=== PATIENT | male | born 1945 | race Caucasian/White ===

== ENCOUNTER → 2016-11-23 | Outpatient (CLI) | payer MEDICARE, BC ==
[2016-04-03 10:30] VITALS: BP 124/75
[~2016-11-23] MED LIST: FLEC100T PO; LISI10TA2 PO; METO25TA9 PO; RIVA10TA PO; SIMV40TA PO; VITA400C36 PO
--- NOTE | 2016-11-24 07:27 | PAIN ---
DATE OF SERVICE: 11/23/2016 PROGRESS NOTE FOR PAIN CLINIC DIAGNOSES: 1. Lumbar radiculopathy with lumbar spinal stenosis and lumbar spondylosis. 2. Right sacroiliitis. HISTORY OF PRESENT ILLNESS: The patient is a 71-year-old male who returns for followup status post right-sided sacroiliac joint injections in 04/2016. The patient did very well with these, but was having some increased back pain over the past month or two and had a new MRI scan of the lumbar spine and has also had a neurosurgical evaluation with MRI scan showing spondylosis with severe stenosis at L4-L5 and lesser extent at L3-L4 with neural foraminal narrowing at multiple levels, particularly severe on the right at L4-L5 and on the left at L3-L4. The patient is having significant pain in the low back, bilateral lower extremities, mostly worse on the right than the left, but increasing into the anterior thighs and medial thighs bilaterally with some radiating radicular type pain, which has been new for him. The patient reports that he has worse pain with activity, standing and walking. In the morning, it is about a 5 on a scale of 10, with activity is an 8 and sitting down is a 2 on a scale of 10. The patient has been taking Xarelto as well for atrial fibrillation and we will check with his commission associate regarding continuation of this as well. The patient reports otherwise no new motor or sensory deficits, no new bowel or bladder incontinence or other complaints, but significant pain again with activity in the areas mentioned. PHYSICAL EXAMINATION: VITAL SIGNS: Today, the patient's blood pressure is 115/58, pulse 50, respirations 20, temperature is 97.3 degrees Fahrenheit, weight is 219 pounds. GENERAL: The patient is awake, alert, oriented, appropriate, has a very pleasant demeanor. HEENT: Shows normocephalic, atraumatic. Extraocular movements are intact and symmetrical. Oral cavity, his mucous membranes are moist and pink. Dentition is intact. NECK: Shows anterior throat supple without palpable lymphadenopathy noted. Swallow reflex is symmetrical. CHEST: Shows normal on inspection. Breath sounds are clear to auscultation bilaterally. HEART: Shows S1 and S2 clear. No murmurs auscultated. ABDOMEN: Soft, nontender, nondistended. No palpable organomegaly is noted. No rebound or guarding demonstrated. BACK: Shows spine grossly in the midline. Normal appearing lumbar lordotic curvature. Lumbar paraspinous musculature appears symmetrical on inspection, with palpation shows moderate tenderness with palpation, but normal muscle girth bilaterally in the middle, upper and lower distribution without significant pain reported, but only diffuse pain in the lower lumbar distribution. No tenderness over the spinous processes, sacrum, he is nontender with palpation. There is some mild tenderness with palpation over the posterior superior iliac spine on the right and in the sacroiliac joint region, but not on the left and no radiation as well. EXTREMITIES: Lower extremities show deep tendon reflexes 2+ in the patellar and 1+ tendo calcaneus tendons. Motor exam is strong with 5/5 dorsiflexion, extension, quadriceps and hamstring flexion and equal. Peripheral pulses are 2+ in the posterior tibial and dorsalis pedis pulses. PLAN: Options were discussed with the patient. The patient's old chart was reviewed as was his current medication regimen and updated. Current review of systems updated today as well and we will check with the patient's commission associate regarding holding his Xarelto for 3 days prior to potential lumbar epidural steroid injection. The patient will continue taking the medication until we have clearance from this. If deemed safe and appropriate, we will have him hold this as instructed and return for lumbar epidural steroid injection at that time. RUBIA LOPEZ MD DR: GLADYS/antony JOB#: [id number] / [id number]
== END | disposition home or self-care (01) ==
LOC: PNCL 08:50
PROVIDERS: ATTEND Anesthesiology
DX: M54.16 Radiculopathy, lumbar region (principal); M48.06 Spinal stenosis, lumbar region; M47.896 Other spondylosis, lumbar region; M46.1 Sacroiliitis, not elsewhere classified
CPT/HCPCS: G0463

== ENCOUNTER → 2016-12-12 | Outpatient (CLI) | payer MEDICARE ==
[2016-04-03 10:30] VITALS: BP 124/75
[~2016-12-12] MED LIST changes: +IOHEXOL 180 MG/ML 10 ML VIAL. ONE; +methylPREDNISolone ACETATE 40 MG/ML VIAL. ONE; +methylPREDNISolone ACETATE 80 MG/ML VIAL. ONE
--- NOTE | 2016-12-13 01:30 | PAIN ---
DATE OF SERVICE: 12/12/2016 PROGRESS NOTE FOR PAIN CLINIC DIAGNOSES: Lumbar radiculopathy with lumbar spinal stenosis and lumbar spondylosis. HISTORY OF PRESENT ILLNESS: The patient is a 71-year-old male who returns for followup status post holding his Xarelto for the past 4 days. The patient reports still having some pain in the low back and bilateral hips and lower extremities, mostly in the posterior gluteus, posterolateral thigh, lateral anterior thigh and posterior lower legs. The patient reports it is tight, radiating and constant, radiating from 2 to 5 on a scale of 10. Reports it does not awaken him from sleep at night and he has been sleeping fairly well, but when he is up on his feet and ambulates ____ he feels the most pain. The patient reports no new motor or sensory deficits, no new bowel or bladder incontinence or other complaints. PHYSICAL EXAMINATION: VITAL SIGNS: Today, the patient's blood pressure is 92/63, pulse is 84, respirations are 18, temperature is 97.8 degrees Fahrenheit. Height is 5 feet 9 inches, weight is 221 pounds. GENERAL: The patient is awake, alert, oriented, appropriate, very pleasant demeanor. HEENT: Head shows normocephalic, atraumatic. Extraocular movements are intact and symmetrical. Oral cavity shows mucous membranes moist and pink. Dentition is intact. NECK: Shows anterior throat supple without palpable lymphadenopathy noted. Swallow reflex is symmetrical. CHEST: Shows normal on inspection. Breath sounds are clear to auscultation bilaterally. HEART: Shows S1 and S2 clear. ABDOMEN: Soft, nontender, nondistended. No palpable organomegaly is noted. BACK: Shows spine grossly in the midline. Lumbar paraspinous muscle shows some mild tenderness with palpation only in the middle and lower lumbar distribution. Paraspinous muscles are symmetrical on inspection. No atrophy, hypertrophy, no radiation of pain, no tenderness over the sacrum or sacroiliac regions. The patient shows good rotational motion of the lumbar spine, both laterally as well as extension and flexion. EXTREMITIES: Lower extremities showed deep tendon reflexes 2+ in the patellar, 1+ tendo calcaneus tendons are equal. Motor exam is strong with 5/5 dorsiflexion, extension, quadriceps and hamstring flexion and symmetrical. Options were discussed with the patient. We will proceed with a lumbar epidural steroid injection today with fluoroscopic guidance. Risks were again discussed including, but not limited to bleeding, infection, possibility of epidural hematoma, subsequent neurologic compromise, dural puncture, headaches, spinal cord and/or nerve damage, side effects of steroid medication and poor results regarding pain control. The patient understands and wishes to proceed. The patient will return to clinic in approximately 2 weeks for followup, was counseled on return appointment, activity level and side effects to be aware of. RUBIA LOPEZ MD DR: GLADYS/antony JOB#: [id number] / [id number]
== END | disposition home or self-care (01) ==
LOC: PNCL 08:33
PROVIDERS: ATTEND Anesthesiology
DX: M47.26 Other spondylosis with radiculopathy, lumbar region (principal); M48.06 Spinal stenosis, lumbar region; E78.00 Pure hypercholesterolemia, unspecified; I10 Essential (primary) hypertension; I48.91 Unspecified atrial fibrillation; M19.90 Unspecified osteoarthritis, unspecified site; Z72.89 Other problems related to lifestyle
CPT/HCPCS: 62323; J1030; J1040

== ENCOUNTER → 2017-02-04 | Outpatient (CLI) | payer MEDICARE ==
[2016-04-03 10:30] VITALS: BP 124/75
--- NOTE | 2017-02-04 09:18 | PN ---
DATE: 02/04/2017 PROGRESS NOTE FOR PAIN CLINIC DIAGNOSES: Lumbar radiculopathy with lumbar spondylosis and lumbar spinal stenosis. HISTORY OF PRESENT ILLNESS: The patient is a 71-year-old male who returns for followup status post lumbar epidural steroid injection x 1 on 12/12/2016. The patient did very well with this, about 90% improvement, but the pain has been again returning now over the past 3 to 4 weeks. The patient reports it does not awaken him from sleep at night. He is sleeping better. The patient has increasing activity with greater ease and comfort. Actually, he feels better when he is walking, but with standing still, sitting for prolonged periods will increase the pain in low back and to the posterior gluteus, posterior lateral thighs, lateral anterior thighs and some in to the posterior calf. The patient reports it as 7 on a scale of 10 at its worst and is a 1 on a scale of 10 at its least. It is currently 1 today. The patient reports no new motor or sensory deficits, no new bowel or bladder incontinence or other complaints. PHYSICAL EXAMINATION: VITAL SIGNS: Today, the patient's blood pressure is 108/69, pulse 51, respirations 18, temperature is 97.5 degrees Fahrenheit, height is 5 feet 9 inches, weight is 216 pounds. GENERAL: The patient is awake, alert, oriented, appropriate, has a very pleasant demeanor. HEENT: Head shows normocephalic, atraumatic. Extraocular movements are intact and symmetrical. Oral cavity shows mucous membranes moist and pink. Dentition is intact. NECK: Shows anterior throat supple without palpable lymphadenopathy noted. Swallow reflex is symmetrical. CHEST: Shows normal on inspection. Breath sounds are clear to auscultation bilaterally. HEART: Shows S1 and S2 clear. ABDOMEN: Soft, nontender, nondistended. No palpable organomegaly. No rebound or guarding demonstrated. BACK: Shows spine grossly in the midline. Lumbar paraspinous muscle shows some mild tenderness to palpation, but is symmetrical with inspection. No radiation of pain, no atrophy, hypertrophy. Good rotational motion both laterally as well as extension and flexion without difficulty in the lumbar spine. EXTREMITIES: Lower extremities show deep tendon reflexes at 2+ in the patellar, 1+ tendo-calcaneus tendons are equal. Motor exam is strong with 5/5 dorsiflexion and extension, quadriceps and hamstring flexion and symmetrical. Options were discussed with the patient and the patient's old chart was reviewed as his current medication regimen and updated. Current review of systems updated today as well. He has been off his Xarelto now for about 4 days. We will proceed with a lumbar epidural steroid injection that is second in the series with fluoroscopic guidance. Risks were again discussed including, but not limited to bleeding, infection, possibility of epidural hematoma and subsequent neurologic compromise, dural puncture, headaches, spinal cord and/or nerve damage, side effects of steroid medication and poor results regarding pain control. The patient understands and wishes to proceed. The patient will return to the clinic in approximately 2 weeks for followup, was counseled on return appointment, activity level and side effects to be aware of. DIAGNOSES: Lumbar radiculopathy with lumbar spinal stenosis and spondylosis. PROCEDURES: Lumbar epidural steroid injection in translaminar approach at the L4-L5 level using C-arm fluoroscopic guidance under sterile prep and drape using local anesthetic. Medication injected is 120 mg of Depo-Medrol plus 10 mL of preservative-free normal saline and 2 mL of Isovue for contrast. CONDITION AT DISCHARGE: Stable. The patient tolerated the procedure well, had no complications. RUBIA LOPEZ MD DR: GLADYS/antony JOB#: [id number] / [id number]
== END | disposition home or self-care (01) ==
LOC: PNCL 08:01
PROVIDERS: ATTEND Anesthesiology
DX: M47.26 Other spondylosis with radiculopathy, lumbar region (principal); M48.06 Spinal stenosis, lumbar region; E78.00 Pure hypercholesterolemia, unspecified; I48.91 Unspecified atrial fibrillation; I10 Essential (primary) hypertension; M19.90 Unspecified osteoarthritis, unspecified site; Z87.39 Personal history of other diseases of the musculoskeletal system and connective tissue; Z72.89 Other problems related to lifestyle
CPT/HCPCS: 62323; J1030; J1040

== ENCOUNTER → 2017-03-28 | Outpatient (CLI) | payer MEDICARE ==
[2016-04-03 10:30] VITALS: BP 124/75
[~2017-03-28] MED LIST changes: +ACET500T33 PO; +OMEG1CAP6 PO; +SIMV20TA3 PO
--- NOTE | 2017-03-28 11:47 | PAIN ---
DATE OF SERVICE: 03/28/2017 PROGRESS NOTE FOR PAIN CLINIC DIAGNOSES: Lumbar radiculopathy with lumbar spondylosis and spinal stenosis. HISTORY OF PRESENT ILLNESS: The patient is a 71-year-old male who returns for followup status post lumbar epidural steroid injections x 2. The patient reports about 75% improvement, but the pain is returning after several weeks, about 3 weeks to 4 weeks it comes back into the low back and the bilateral lower extremities, somewhat worse on the right than the left, but present bilaterally in posterior gluteus, posterior bilateral thigh, anterior medial thigh and to the lower leg, both medially and posteriorly. The patient reports high as an 8 on a scale of 10 currently 3 on a scale 10 today and averaged about 4 on a scale of 10. The patient reports cramping, tight shooting. He is still exercising, walking about 2 miles a day, doing some stretching exercises, but reports it does not seem to help the pain as much as he used to. The patient reports it does not awaken him from sleep at night, feels much better with sitting or lying down and feels that his symptoms are worsening and he feels more stiff. The patient reports no new motor or sensory deficits, no new bowel or bladder incontinence or other complaints. PHYSICAL EXAMINATION: VITAL SIGNS: Today, the patient's blood pressure 118/76, pulse 49, respirations 20, temperature 98.2 degrees Fahrenheit, height is 5 feet 9 inches, weight is 217 pounds. GENERAL: The patient is awake, alert, oriented, appropriate, very pleasant demeanor. HEENT: Head shows normocephalic, atraumatic. Extraocular movements are intact, symmetrical. Oral cavity, mucous membranes are moist and pink. Dentition is intact. NECK: Shows anterior throat supple without palpable lymphadenopathy noted. Swallow reflex is symmetrical. CHEST: Shows normal on inspection. Breath sounds are clear bilaterally. HEART: Shows S1 and S2 clear. No murmurs auscultated. ABDOMEN: Obese, soft, nontender, nondistended. BACK: Shows spine grossly in midline. Lumbar paraspinous musculature shows symmetrical on inspection, with palpation shows some moderate tenderness but only diffusely in the mid and lower lumbar distribution without radiation. The patient has full rotational motion of lumbar spine, both laterally as well as extension and flexion without difficulty. EXTREMITIES: Lower extremities showed deep tendon reflexes 2+ in the patellar, 1+ tendo-calcaneus tendons and are equal. Motor exam is strong with 5/5 dorsiflexion, extension, quadriceps and hamstring flexion. Options were discussed with the patient and the patient's old chart was reviewed as his current medication regimen updated. Current review of systems updated today as well. We will proceed with the lumbar epidural steroid injection that is third in the series with fluoroscopic guidance. Risks were again discussed including, but not limited to bleeding, infection, possibility of epidural hematoma, subsequent neurologic compromise, dural puncture, headaches, spinal cord and/or nerve damage, side effects of steroid medication and poor results regarding pain control. The patient understands and wishes to proceed. The patient will return to clinic in approximately 2 weeks for followup, was counseled on return appointment, activity level and side effects to be aware of. DIAGNOSIS: Lumbar radiculopathy with lumbar spinal stenosis and lumbar spondylosis. PROCEDURES: Lumbar epidural steroid injection in translaminar approach L4-L5 level using C-arm fluoroscopic guidance under sterile prep and drape using local anesthetic. MEDICATION INJECTED: A total of 120 mg Depo-Medrol plus 10 mL of preservative-free normal saline and 2 mL of Isovue for contrast. CONDITION AT DISCHARGE: Stable. The patient tolerated procedure well, had no complications. RUBIA LOPEZ MD DR: GLADYS/antony JOB#: [id number] / [id number]
== END | disposition home or self-care (01) ==
LOC: PNCL 08:52
PROVIDERS: ATTEND Anesthesiology
DX: M47.26 Other spondylosis with radiculopathy, lumbar region (principal); M48.06 Spinal stenosis, lumbar region; E78.00 Pure hypercholesterolemia, unspecified; I48.91 Unspecified atrial fibrillation; I10 Essential (primary) hypertension; M19.90 Unspecified osteoarthritis, unspecified site; Z87.39 Personal history of other diseases of the musculoskeletal system and connective tissue; Z72.89 Other problems related to lifestyle
CPT/HCPCS: 62323; J1030; J1040

== ENCOUNTER → 2017-06-11 | Outpatient (CLI) | payer MEDICARE ==
[2016-04-03 10:30] VITALS: BP 124/75
[~2017-06-11] MED LIST changes: +METO-239 PO; -METO25TA9 PO
--- NOTE | 2017-06-11 15:08 | PAIN ---
DATE OF SERVICE: 06/11/2017 DIAGNOSES: Lumbar radiculopathy with lumbar spinal stenosis and lumbar spondylosis. HISTORY OF PRESENT ILLNESS: The patient is a 71-year-old male who returns for followup status post lumbar epidural steroid injections, last seen on 03/28/2017. The patient did very well with about 90% improvement for about 3-4 weeks. The patient reports the pain returned after that time to a moderate extent, not to his baseline, but still significant pain in the low back, right lower extremity, mostly in the posterior hip and thigh, radiating to the leg as well. The patient reports pain is a 6 on a scale of 10 at its worst, 4 on average and a 2 on a scale of 10 at least, is a 2 today. The patient reports it is tight, burning, cramping and constant. He has been increasing his bicycle riding more recently, which he enjoys, and this has been quite helpful for keeping his back pain in control by his report. The patient reports still some tightness, worse with walking and standing, occasionally grabs and stings and is sharp in his right hip, but otherwise doing better with the bicycle activity. The patient reports it awakens him from sleep occasionally, he needs to reposition and usually when he is lying on ____ left side or on his back, and the pain is better. The patient reports no new motor or sensory deficits, no new bowel or bladder incontinence or other complaints. PHYSICAL EXAMINATION: VITAL SIGNS: Today, the patient's blood pressure is 136/79, pulse 53, respirations 18, temperature 97.1 degrees Fahrenheit, height is 5 feet 9 inches, weight is 219 pounds. GENERAL: The patient is awake, alert, oriented, appropriate, very pleasant demeanor. HEENT: Head shows normocephalic, atraumatic. Extraocular movements are intact and symmetrical. Oral cavity shows mucous membranes moist and pink. Dentition is intact. NECK: Shows anterior throat supple without palpable lymphadenopathy noted. Swallow reflex is symmetrical. CHEST: Shows normal on inspection. Breath sounds are clear to auscultation bilaterally. HEART: Shows S1 and S2 clear. No murmurs auscultated. ABDOMEN: Soft, nontender, nondistended. No palpable organomegaly, no rebound or guarding demonstrated. BACK: Shows spine grossly midline. Lumbar paraspinous muscle shows symmetrical with inspection, on palpation shows some [id number] tenderness, only in the low lumbar distribution bilaterally and diffusely without radiation. No atrophy, hypertrophy. No tenderness over the spinous processes, sacrum or sacroiliac regions. The patient shows good rotation and motion of the lumbar spine, both laterally as well as extension and flexion without significant difficulty. EXTREMITIES: Lower extremities showed deep tendon reflexes at 2+ in the patellar, 1+ tendo calcaneus tendons. Motor exam is strong with 5/5 dorsiflexion, extension, quadriceps and hamstring flexion are equal bilaterally. Peripheral pulses are 1+ posterior tibia. No peripheral edema is noted. Options were discussed with the patient and the patient's old chart was reviewed and updated. Review of systems updated as well as medication list updated today, and we will proceed with a lumbar epidural steroid injection, first in this series. Risks were again discussed including, but not limited to bleeding, infection, possibility of epidural hematoma, subsequent neurologic compromise, dural puncture, headaches, spinal cord and/or nerve damage, side effects of steroid medication and poor results regarding pain control. The patient understands and wishes to proceed. The patient will return to clinic in approximately 2 weeks for followup. He was counseled on return appointment, activity level and side effects to be aware of. DIAGNOSIS: Lumbar radiculopathy with lumbar spinal stenosis and spondylosis. PROCEDURE: Lumbar epidural steroid injection in translaminar approach at the L4-5 level using C-arm fluoroscopic guidance under sterile prep and drape using local anesthetic. MEDICATION INJECTED: Total of 120 mg Depo-Medrol, plus total of 10 mL preservative-free normal saline and 2 mL of Isovue for contrast. CONDITION AT DISCHARGE: Stable. The patient tolerated procedure well, had no complications. RUBIA LOPEZ MD DR: GLADYS/antony JOB#: [id number] / [id number]
== END | disposition home or self-care (01) ==
LOC: PNCL 13:31
PROVIDERS: ATTEND Anesthesiology
DX: M47.26 Other spondylosis with radiculopathy, lumbar region (principal); M48.061 Spinal stenosis, lumbar region without neurogenic claudication; E78.00 Pure hypercholesterolemia, unspecified; I48.91 Unspecified atrial fibrillation; I10 Essential (primary) hypertension; M19.91 Primary osteoarthritis, unspecified site; Z87.39 Personal history of other diseases of the musculoskeletal system and connective tissue; Z72.89 Other problems related to lifestyle
CPT/HCPCS: 62323; J1030; J1040

== ENCOUNTER → 2017-08-08 | Outpatient (CLI) | payer MEDICARE ==
[2016-04-03 10:30] VITALS: BP 124/75
--- NOTE | 2017-08-08 09:39 | PN ---
DATE: 08/08/2017 PROGRESS NOTE FOR PAIN CLINIC DIAGNOSES: Lumbar radiculopathy with lumbar spinal stenosis and lumbar spondylosis. HISTORY OF PRESENT ILLNESS: The patient is a 71-year-old male who returns for followup status post lumbar epidural steroid injection x 1 on 06/11/2017. The patient did very well with this, with about 75% improvement. Pain is returning, however, over the past few days. The patient reports it is worse with walking and standing, especially with walking greater than 15-20 minutes. He has to sit down and rest, but after about 1-2 minutes, the pain is resolved for the most part and he can stand up and start again. The patient reports the pain is across the low back, more on the right than the left, but bilaterally in the posterior gluteus, posterior thigh, lateral thighs and posterior calves bilaterally. The patient reports it is 7 on a scale of 10 at its worst, 4 on an average and a 3 at its least; this is a 3 today. The patient reports its aching, tight shooting, cramping and stabbing, but on and off in intensity, again worse with walking and standing, better with sitting or lying down. It does not awaken him from sleep at night. No new motor or sensory deficits. No new bowel or bladder incontinence reported. PHYSICAL EXAMINATION: VITAL SIGNS: The patient's blood pressure is 108/71, pulse 56, respirations 20 and temperature 97.5 degrees Fahrenheit. Height is 5 feet 9 inches, weight is 214 pounds. GENERAL: The patient is awake, alert, oriented, appropriate, very pleasant demeanor. HEENT EXAMINATION: Shows normocephalic, atraumatic. Extraocular movements are intact and symmetrical. Oral cavity, mucous membranes moist and pink. Dentition is intact. NECK: Shows anterior throat supple, without palpable lymphadenopathy noted. Swallow reflex symmetrical. CHEST: Shows normal on inspection. Breath sounds are clear to auscultation bilaterally. HEART: Shows S1, S2 clear. No murmurs auscultated. ABDOMEN: Soft, nontender and nondistended. No palpable organomegaly. There is no rebound or guarding demonstrated. BACK: Shows spine grossly in the midline. Lumbar paraspinous muscle shows some moderate tenderness with palpation, but is symmetrical on inspection. No radiation of pain. LOWER EXTREMITIES: Show deep tendon reflexes 2+ in the patellar and tendo calcaneus tendons are 1+ bilaterally. Motor exam is strong with 5/5 dorsiflexion, extension, quadriceps and hamstring flexion. Peripheral pulses are 1+ posterior tibial. No peripheral edema is noted. No clubbing or cyanosis. Options were discussed with the patient. The patient's old chart was reviewed and his current medication regimen updated. Current review of systems updated today as well. We will proceed with a second in the series of lumbar epidural steroid injection with fluoroscopic guidance. Risks were again discussed including, but not limited to bleeding, infection, possibility of epidural hematoma, subsequent neurological compromise, dural puncture, headaches, spinal cord and/or nerve damage, side effects of steroid medication and poor results regarding pain control. The patient understands and wished to proceed. The patient will return to clinic in approximately 2 weeks for followup. He was counseled to return appointment, activity level and side effects to be aware of. DIAGNOSES: Lumbar radiculopathy with lumbar spinal stenosis and lumbar spondylosis. PROCEDURE: Lumbar epidural steroid injection, translaminar approach at the L5-S1 level using C-arm fluoroscopic guidance under sterile prep and drape using local anesthetic. MEDICATION INJECTED: A total of 120 mg Depo-Medrol plus 10 mL of preservative-free normal saline and 2 mL of Isovue for contrast. CONDITION AT DISCHARGE: Stable. The patient tolerated the procedure well, had no complications. RUBIA LOPEZ MD DR: GLADYS/antony JOB#: [id number] / [id number]
== END | disposition home or self-care (01) ==
LOC: PNCL 08:07
PROVIDERS: ATTEND Anesthesiology
DX: M47.26 Other spondylosis with radiculopathy, lumbar region (principal); M48.061 Spinal stenosis, lumbar region without neurogenic claudication; E78.00 Pure hypercholesterolemia, unspecified; I10 Essential (primary) hypertension; Z87.39 Personal history of other diseases of the musculoskeletal system and connective tissue; Z72.89 Other problems related to lifestyle
CPT/HCPCS: 62323; J1030; J1040

== ENCOUNTER → 2017-09-17 | Outpatient (CLI) | payer MEDICARE ==
[~2017-09-17] MED LIST changes: -ACET500T33 PO; -FLEC100T PO; +IOHEXOL 180 MG/ML 10 ML VIAL.; -IOHEXOL 180 MG/ML 10 ML VIAL. ONE; -LISI10TA2 PO; -METO-239 PO; -OMEG1CAP6 PO; -RIVA10TA PO; -SIMV20TA3 PO; -SIMV40TA PO; -VITA400C36 PO; +methylPREDNISolone ACETATE 40 MG/ML VIAL.; -methylPREDNISolone ACETATE 40 MG/ML VIAL. ONE; +methylPREDNISolone ACETATE 80 MG/ML VIAL.; -methylPREDNISolone ACETATE 80 MG/ML VIAL. ONE
== END | disposition home or self-care (01) ==
LOC: PNCL 10:46
DX: M47.26 Other spondylosis with radiculopathy, lumbar region (principal); M48.061 Spinal stenosis, lumbar region without neurogenic claudication; E78.00 Pure hypercholesterolemia, unspecified; I48.91 Unspecified atrial fibrillation; M19.90 Unspecified osteoarthritis, unspecified site; Z87.39 Personal history of other diseases of the musculoskeletal system and connective tissue; Z72.89 Other problems related to lifestyle
CPT/HCPCS: 62323; J1030; J1040

== ENCOUNTER → 2017-10-24 | Outpatient (CLI) | payer MEDICARE, BC | LOC: MRI 08:20 | DX: M51.26 Other intervertebral disc displacement, lumbar region (principal); E88.2 Lipomatosis, not elsewhere classified; E78.00 Pure hypercholesterolemia, unspecified; I48.91 Unspecified atrial fibrillation; M19.90 Unspecified osteoarthritis, unspecified site; Z79.82 Long term (current) use of aspirin | CPT/HCPCS: 72148 ==

== ENCOUNTER → 2017-11-28 | Outpatient (CLI) | payer MEDICARE, BC ==
[2017-11-28 14:34] LABS: ADD MAN DIFF? NO
[2017-11-28 14:38] LABS: BASO % 1 % (0-3); EOS # 0.2 x10^3/uL (0.0-0.7); EOS % 5 % (0-3); HEMATOCRIT 42.7 % (39.0-53.0); HEMOGLOBIN 14.6 g/dL (13.0-17.5); LYMPH # 1.5 x10^3/uL (1.0-4.8); LYMPH % 33 % (24-48); MEAN CORPUSCULAR HEMOGLOBIN 35 pg (25-35); MEAN CORPUSCULAR HGB CONC 34 g/dL (31-37); MEAN CORPUSCULAR VOLUME 101 fL (79-100); MONO # 0.5 x10^3/uL (0.0-1.1); MONO % 11 % (0-9); NEUT # 2.4 x10^3uL (1.8-7.7); NEUT % 51 % (31-73); PLATELET COUNT 215 x10^3/uL (140-400); RED BLOOD COUNT 4.21 x10^6/uL (4.30-5.70); RED CELL DISTRIBUTION WIDTH 12.3 % (11.5-14.5); WHITE BLOOD COUNT 4.6 x10^3/uL (4.0-11.0)
[2017-11-28 14:55] LABS: ALBUMIN 3.6 g/dL (3.4-5.0); ALK PHOS 66 U/L (46-116); ALT (SGPT) 25 U/L (16-63); ANION GAP 10 (6-14); AST (SGOT) 17 U/L (15-37); BLOOD UREA NITROGEN 19 mg/dL (8-26); BUN/CREATININE RATIO 15 (6-20); CARBON DIOXIDE 26 mmol/L (21-32); CHLORIDE 101 mmol/L (98-107); CREATININE 1.3 mg/dL (0.7-1.3); GFR 54.3; GLUCOSE 137 mg/dL (70-99); POTASSIUM 3.8 mmol/L (3.5-5.1); SODIUM 137 mmol/L (136-145); TOTAL BILIRUBIN 0.5 mg/dL (0.2-1.0); TOTAL PROTEIN 7.2 g/dL (6.4-8.2)
[2017-11-29 03:20] LABS: MRSA BY PCR Negative (Negative)
== END | disposition home or self-care (01) ==
LOC: SURGPAT 13:24
DX: Z01.818 Encounter for other preprocedural examination (principal); M48.061 Spinal stenosis, lumbar region without neurogenic claudication
CPT/HCPCS: 36415; 80053; 85025; 87641

== ENCOUNTER → 2017-12-04 | Day surgery (SDC) | payer MEDICARE, BC ==
[~2017-12-04] MED LIST changes: +DESFLURANE > 120 MINUTES IH; +DEXAMETHASONE SOD PHOS 20 MG/5 ML VIAL.; +GLYCOPYRROLATE 1 MG/5 ML VIAL.; +HYDROmorphone 2 MG/ML VIAL IV; -IOHEXOL 180 MG/ML 10 ML VIAL.; +LIDOCAINE 1% PF 2 ML VIAL. ID; +MINERAL OIL/PETROLATUM,WHITE OPHTH OINT 3.5GM TUBE.; +MORPHINE SULFATE 4 MG/ML DISP.SYRIN. IV; +ONDANSETRON PF 4 MG/2 ML VIAL.; +ONDANSETRON PF 4 MG/2 ML VIAL. IV; +PHENYLEPHRINE 10 MG/ML VIAL.; +PROCHLORPERAZINE 10 MG/2 ML VIAL. IV; +PROPOFOL 20 ML IV; +PROPOFOL 50 ML IV; +REMIFENTANIL 2 MG VIAL. IV; +ROCURONIUM 50 MG/5 ML VIAL.; +SUCCINYLCHOLINE 200 MG/10 ML VIAL.; +ceFAZolin 2GM PREMIX 2 GM/50 ML BAG IV; +fentaNYL PF VIAL 100 MCG/2 ML VIAL; +fentaNYL PF VIAL 100 MCG/2 ML VIAL IV; -methylPREDNISolone ACETATE 40 MG/ML VIAL.; -methylPREDNISolone ACETATE 80 MG/ML VIAL.
[2017-12-04] MEDS: IV RINGERS,LACTATED 1000ML 1,000 ML IV (10:40)
[2017-12-04] MEDS: GELATIN SPONGE SIZE 100. (13:18)
[2017-12-04] MEDS: KETOROLAC 60 MG/2 ML INJ FOR OR. (13:18)
[2017-12-04] MEDS: BUPIVAC MPF-EPI 0.5%-1:200000 30 ML VIAL. INJ (13:18)
[2017-12-04] MEDS: THROMBIN TOPICAL 20,000 UNIT SPRAY.SYRN KIT TP (13:18)
[2017-12-04] MEDS: BACITRACIN 50,000 UNIT in IV NORMAL SALINE 1000ML BAG 1,000 ML IRR (13:18)
[2017-12-04] MEDS: fentaNYL PF VIAL 100 MCG/2 ML VIAL IV (16:35)
[2017-12-04] MEDS: HYDROcodone/APAP 7.5/325MG 1 TAB TABLET PO (16:54)
== END ==
LOC: SURG 09:58
DX: M48.062 Spinal stenosis, lumbar region with neurogenic claudication (principal); I10 Essential (primary) hypertension; M19.90 Unspecified osteoarthritis, unspecified site; I48.91 Unspecified atrial fibrillation; Z72.89 Other problems related to lifestyle; Z86.19 Personal history of other infectious and parasitic diseases
CPT/HCPCS: 63030; 76000; 97162-GP; 97530-GP; A7015; G8978-CI-GP; G8979-CI-GP; G8980-CI-GP; J0330; J0690; J1100; J1885; J2405; J2704; J3010; J3490; J7030; J7120

== ENCOUNTER → 2018-05-08 | Outpatient (CLI) | payer MEDICARE, BC ==
[2017-12-04 17:30] VITALS: BP 105/55
[~2018-05-08] MED LIST changes: +ACET500T33 PO; +ASPI-630 PO; +CRAN200C2 PO; -DESFLURANE > 120 MINUTES IH; -DEXAMETHASONE SOD PHOS 20 MG/5 ML VIAL.; +DOCU-109 PO; +FLEC100T PO; +GADOBUTROL 10 MMOL/10 ML VIAL IV ONE; -GLYCOPYRROLATE 1 MG/5 ML VIAL.; +HYDR-2762 PO; -HYDROmorphone 2 MG/ML VIAL IV; -LIDOCAINE 1% PF 2 ML VIAL. ID; +LISI10TA2 PO; +METH-38 PO; +METO-239 PO; -MINERAL OIL/PETROLATUM,WHITE OPHTH OINT 3.5GM TUBE.; -MORPHINE SULFATE 4 MG/ML DISP.SYRIN. IV; +OMEG1CAP6 PO; -ONDANSETRON PF 4 MG/2 ML VIAL.; -ONDANSETRON PF 4 MG/2 ML VIAL. IV; -PHENYLEPHRINE 10 MG/ML VIAL.; -PROCHLORPERAZINE 10 MG/2 ML VIAL. IV; -PROPOFOL 20 ML IV; -PROPOFOL 50 ML IV; -REMIFENTANIL 2 MG VIAL. IV; +RIVA10TA PO; +RIVA20TA2 PO; -ROCURONIUM 50 MG/5 ML VIAL.; +SIMV20TA3 PO; +SIMV40TA PO; +SIMV40TA3 PO; -SUCCINYLCHOLINE 200 MG/10 ML VIAL.; +VITA400C36 PO; -ceFAZolin 2GM PREMIX 2 GM/50 ML BAG IV; -fentaNYL PF VIAL 100 MCG/2 ML VIAL; -fentaNYL PF VIAL 100 MCG/2 ML VIAL IV
--- NOTE | 2018-05-08 16:19 | KCIC ---
MRI Lumbar Spine without and with contrast History: Lumbar stenosis, previous surgery, continued low back pain, bilateral leg pain and numbness Technique: Multiplanar, multi sequential noncontrast MR imaging was performed of the lumbar spine. Contrast: 9 cc Gadavist Comparison: October 24, 2017 Findings: There is some motion degradation. There is again minimal grade 1 anterior spondylolisthesis L3-4 and negligible posterior subluxation L2 relative L3 and L1 relative to L2. There is more advanced degenerative disease at L3-4 and more eccentric to the right at L4-5, mild degenerative disc disease L1-L2 and T12-L1. There is increased L3-4 endplate edema, also new L4-5 endplate edema more eccentric to the right also with involvement of the right L4 and L5 pedicles. There is no significant enhancement in the intervertebral disc spaces. Conus terminates at L1. There is no nodular enhancement of the conus or cauda equina. L2-L3: There is negligible bulge. Neural foramina and spinal canal are adequate. There is prominence of posterior epidural fat, mild buckling of the ligamentum flavum, and mild to moderate facet degenerative change. L3-L4: There are now laminectomy defects bilaterally. There is enhancing fibrosis at the laminectomy sites and also in the left lateral recess. Spinal canal is overall adequate. There is again minimal disc osteophyte complex and minimal bulge/protrusion. There is moderate to severe narrowing of the left neural foramen, contact of the exiting left L3 nerve root, overall degree of narrowing left neural foramen somewhat decreased, some enhancement extending to the posterior margin of left neural foramen. There is [id number]-[id number] narrowing of the right neural foramen. L4-L5: There are now laminectomy defects bilaterally, enhancing fibrosis at the laminectomy sites and also extending to the lateral aspects of the far lateral recesses bilaterally. Spinal canal is now overall adequate. There is minimal posterior bulge as seen previously. There is severe narrowing of the right neural foramen contact exiting right L4 nerve root, narrowing due to facet hypertrophic change and disc osteophyte complex. There is akuk-ol-[id number] narrowing of the left neural foramen. L5-S1: Spinal canal is adequate. There is mild posterior neural foramina compromise bilaterally. Impression: 1. Comparing with the October 2017 exam, there have been laminectomies bilaterally at L3-4 and L4-5 with some enhancing fibrosis in the lateral recesses as stated, spinal canal now overall adequate at these levels. There is no significant lumbar spinal stenosis. 2. There is neural foramina compromise as stated left greater than right at L3-4 and right greater than left at L4-5. 3. There is again degenerative disc disease greatest at L3-4 and L4-5. There is degenerative endplate edema at these levels more likely to be reactive/degenerative in etiology, no significant enhancement in the intervertebral disc spaces as more commonly associated with infectious spondylitis. There is also edema involving the right L4 and L5 pedicles. Electronically signed by: Chad Arredondo MD (05/08/2018 4:15 PM) [facility]
== END | disposition home or self-care (01) ==
LOC: KCIC MRI 14:27
PROVIDERS: ATTEND Neurological Surgery
DX: M48.061 Spinal stenosis, lumbar region without neurogenic claudication (principal); M51.36 Other intervertebral disc degeneration, lumbar region; M43.16 Spondylolisthesis, lumbar region; R60.9 Edema, unspecified
CPT/HCPCS: 72158; 82565; A9585

== ENCOUNTER → 2018-06-02 | Outpatient (CLI) | payer MEDICARE, BC ==
[2017-12-04 17:30] VITALS: BP 105/55
[~2018-06-02] MED LIST changes: +BUPIVACAINE MPF 0.25% 10 ML VIAL. ONE; -GADOBUTROL 10 MMOL/10 ML VIAL IV ONE; +IOHEXOL 180 MG/ML 10 ML VIAL. ONE; +LIDOCAINE 1% PF 2 ML VIAL. ONE; +methylPREDNISolone ACETATE 80 MG/ML VIAL. ONE
--- NOTE | 2018-06-02 21:19 | PAIN ---
DATE OF SERVICE: 06/02/2018 DIAGNOSES: Lumbar radiculopathy with lumbar spinal stenosis, spondylosis and post-lumbar laminectomy syndrome. HISTORY OF PRESENT ILLNESS: The patient is a 72-year-old male, returns for followup status post lumbar epidural steroid injections, last seen 09/17/2017. The patient had surgery in November of this year with 2-level laminectomies at L3-L4 and L4-L5, still has some pain resultant after the surgery in the low back and right posterior gluteus, posterior lateral thigh, lateral anterior thigh. The patient reports otherwise he is feeling fairly well, still some back pain and right leg pain with some aching and tightness description and also described as cramping and stabbing in the right leg, posterior gluteus, lateral thigh, lateral anterior thigh, medial thigh to the knee on the right side only. The patient reports it is a 7 on a scale of 10 at its worst, 2 at its least, 3 on average, and is a 3 today. The patient was worse with standing, walking, changing positions, better with sitting or lying down, does not awaken him from sleep at night, worse with walking more than about 10-15 minutes. The patient reports he has to stop and rest to decrease the pain and sit down. The patient reports no new motor or sensory deficits, no new bowel or bladder incontinence. He did have an MRI scan, which is showing some enhanced fibrosis after the surgery at L3-L4 and L4-L5 with laminectomy defects bilaterally. Still with some severe narrowing of the right neural foramen contacting the exiting right L4 nerve root at the L4-L5 level. PHYSICAL EXAMINATION: VITAL SIGNS: Today, the patient's blood pressure is 116/68, pulse 56, respirations 18, temperature is 98.1 degrees Fahrenheit, weight is 216 pounds. GENERAL: The patient is awake, alert, oriented, appropriate, very pleasant demeanor. HEENT: Shows normocephalic, atraumatic. Extraocular movements are intact and symmetrical. Oral cavity: Mucous membranes moist and pink. Dentition is intact. NECK: Shows anterior throat supple without palpable lymphadenopathy noted. Swallow reflex is symmetrical. CHEST: Shows normal on inspection. Breath sounds are clear to auscultation bilaterally. HEART: Shows S1, S2 clear. No murmurs auscultated. ABDOMEN: Soft, nontender, nondistended. No palpable organomegaly is noted. No rebound or guarding demonstrated. BACK: Shows spine grossly in the midline. Normal appearing thoracic kyphosis and minor flattening of lumbar lordotic curvature with well-healed surgical scar in the lumbar distribution noted. Lumbar paraspinous muscle shows symmetrical on inspection. With palpation shows some mild tenderness throughout the upper, middle, lower distributions of the paraspinous muscles, but only diffusely without radiation. EXTREMITIES: Lower extremities show deep tendon reflexes at 2+ in the patellar, 1+ tendo calcaneus tendons. Motor exam is strong with 5/5 dorsiflexion, extension, quadricep and hamstring flexion and equal. Peripheral pulses are 1+ posterior tibia. No peripheral edema is noted bilaterally. Options were discussed with the patient. The patient's old chart was reviewed as is his current medication regimen updated. Current review of systems is updated today as well. We will proceed with a right-sided L4-L5 transforaminal selective injection today. Risks were again discussed including, but not limited to bleeding, infection, possibility of epidural hematoma, subsequent neurological compromise, dural puncture, headaches, spinal cord and/or nerve damage, side effects of steroid medication, potential injection of the vertebral artery at that level and permanent ischemic damage as well as poor results regarding pain control. The patient understands and wished to proceed. The patient will return to the clinic in approximately 2 weeks for followup, was counseled on return appointment, activity level and side effects to be aware of. 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 We will have him start that again tomorrow, 06/03/2018 as instructed. DIAGNOSES: Lumbar radiculopathy with lumbar spinal stenosis and lumbar spondylosis, post-lumbar laminectomy syndrome. PROCEDURE: Transforaminal injection L4-L5 level using C-arm fluoroscopic guidance under sterile prep and drape using local anesthetic. MEDICATION INJECTED: A total of 2 mL of bupivacaine and 80 mg Depo-Medrol, also 1.5 mL of Isovue for contrast. CONDITION AT DISCHARGE: Stable. The patient tolerated the procedure well, had no complications. RUBIA LOPEZ MD DR: GLADYS/antony JOB#: [id number] / [id number]
== END | disposition home or self-care (01) ==
LOC: PNCL 08:14
PROVIDERS: ATTEND Anesthesiology
DX: M48.061 Spinal stenosis, lumbar region without neurogenic claudication (principal); M47.26 Other spondylosis with radiculopathy, lumbar region; M96.1 Postlaminectomy syndrome, not elsewhere classified
CPT/HCPCS: 64483; J1040; J3490; Q9965

== ENCOUNTER → 2018-09-04 | Outpatient (CLI) | payer MEDICARE, BC ==
[2017-12-04 17:30] VITALS: BP 105/55
[~2018-09-04] MED LIST changes: -BUPIVACAINE MPF 0.25% 10 ML VIAL. ONE; -HYDR-2762 PO; +HYDR-2765 PO; -IOHEXOL 180 MG/ML 10 ML VIAL. ONE; -LIDOCAINE 1% PF 2 ML VIAL. ONE; -methylPREDNISolone ACETATE 80 MG/ML VIAL. ONE
--- NOTE | 2018-09-04 11:20 | PAIN ---
DATE OF SERVICE: 09/04/2018 DIAGNOSES: Lumbar radiculopathy with lumbar spinal stenosis, lumbar spondylosis and post-lumbar laminectomy syndrome. HISTORY OF PRESENT ILLNESS: The patient is a 72-year-old male who returns for followup status post right L4-L5 transforaminal injection on 06/02/2018. The patient did very well with 90% improvement for a full month after the injection. The patient reports the pain began to return gradually and is still not back to baseline, but is much more noticeable now in the low back, right leg, right lateral anterior thigh, anterior medial thigh, posterior calf as well as the anterior calf on the medial aspect of the right leg and across the low back. The patient reports it is a 7 on a scale of 10 at its worst, 4-5 on average, 2-3 at its least and is a 4 today. The patient reports it is aching and sharp at times, tight, shooting, cramping, becoming more constant with radiating pain in the right leg. The patient reports initially he was doing great, was increasing the distance walking, doing recreational activities, work activities, household activities, traveling with greater ease and comfort. The patient reports it does not awaken him from sleep, feels much better with sitting or lying down, much worse with walking, standing, changing positions. PHYSICAL EXAMINATION: VITAL SIGNS: Today, the patient's blood pressure 148/72, pulse is 77, respirations 16, temperature 97.7 degrees Fahrenheit, height is 5 feet 9 inches, weighs 212 pounds. GENERAL: The patient is awake, alert, oriented, appropriate, very pleasant demeanor. HEENT: Head is normocephalic, atraumatic. Extraocular muscles are intact and symmetrical. Oral cavity: Mucous membranes moist and pink. Dentition is intact. NECK: Shows anterior throat supple without palpable lymphadenopathy noted. Swallow reflex symmetrical. CHEST: Shows normal with inspection. Breath sounds are clear to auscultation bilaterally. HEART: Shows S1, S2 clear. No murmurs auscultated. ABDOMEN: Soft, nontender, nondistended. No palpable organomegaly is noted. No rebound or guarding demonstrated. BACK: The patient's back shows spine grossly in the midline, normal appearing thoracic kyphosis and some mild flattening of lumbar lordotic curvature. Well-healed surgical scar noted in the lumbar distribution. Lumbar paraspinous muscle shows symmetrical on inspection, with palpation shows some moderate tenderness diffusely, but only diffusely bilaterally in the low lumbar distribution without radiation. The patient has good rotational motion laterally as well as extension and flexion without significant tenderness. EXTREMITIES: The patient's lower extremities show deep tendon reflexes at 2+ in the patellar, 1+ in tendo-calcaneus tendons equal. Motor exam is strong with 5/5 dorsiflexion, extension, quadriceps and hamstring flexion and symmetrical. Peripheral pulses are 1+ posterior tibia. No peripheral edema is noted bilaterally. Options were discussed with the patient. The patient's old chart was reviewed as his current medication regimen updated. Current review of systems updated today as well. We will proceed with holding his Xarelto as cleared by his drawing box tender for 2 days prior to repeat L4-L5 right-sided transforaminal injection. The patient will return next week after holding the Xarelto for 48-hour period and we will plan on transforaminal injection on the right L4-L5 at that time. RUBIA LOPEZ MD DR: GLADYS/antony JOB#: [id number] / [id number]
== END | disposition home or self-care (01) ==
LOC: PNCL 10:03
PROVIDERS: ATTEND Anesthesiology
DX: M47.26 Other spondylosis with radiculopathy, lumbar region (principal); M48.061 Spinal stenosis, lumbar region without neurogenic claudication; M96.1 Postlaminectomy syndrome, not elsewhere classified
CPT/HCPCS: G0463

== ENCOUNTER → 2018-09-09 | Outpatient (CLI) | payer MEDICARE, BC ==
[2017-12-04 17:30] VITALS: BP 105/55
[~2018-09-09] MED LIST changes: +BUPIVACAINE MPF 0.25% 10 ML VIAL. ONE; +IOHEXOL 180 MG/ML 10 ML VIAL. ONE; +methylPREDNISolone ACETATE 40 MG/ML VIAL. ONE; +methylPREDNISolone ACETATE 80 MG/ML VIAL. ONE
--- NOTE | 2018-09-09 09:28 | PAIN ---
DATE OF SERVICE: 09/09/2018 PROGRESS NOTE FOR PAIN CLINIC DIAGNOSES: Lumbar radiculopathy with lumbar spinal stenosis and lumbar spondylosis and post-lumbar laminectomy syndrome. HISTORY OF PRESENT ILLNESS: The patient is a 72-year-old male who returns for followup status post right transforaminal injection at the L4-L5. The patient reports he did very well with approximately 90% improvement in his right lower extremity and low back pain. The patient reports the pain has been returning but still did very well with some pain is returning now in the posterior back, gluteus, right thigh, right lateral anterior thigh, anterior medial thigh, medial knee and medial lower leg. It is worse with walking, standing, change in positions. The patient reports it is becoming cramping and becoming more constant, aching, tight and shooting in the right leg, rates as a 7 on a scale of 10 at its worst, 3-4 at its average 2-3 at its least and is a 4 today. The patient reports no new motor or sensory deficits. Initially, he was increasing his distance walking, doing activities around the house and traveling with much greater ease and comfort. Pain is returning now but again significantly reduced after the last injection. The patient reports it does not awaken him from sleep at night, better with sitting or lying down, worse with walking and standing. PHYSICAL EXAMINATION: VITAL SIGNS: The patient's blood pressure 137/69, pulse 57, respirations 18 and temperature 97.9 degrees Fahrenheit. Height 5 feet 9 inches and weight is 211 pounds. GENERAL: The patient is awake, alert, oriented, appropriate and very pleasant demeanor. HEENT: Head shows normocephalic and atraumatic. Extraocular movements are intact and symmetrical. Oral cavity: Mucous membranes are moist and pink. Dentition is intact. NECK: Shows anterior throat supple without palpable lymphadenopathy noted. Swallow reflex symmetrical. CHEST: Shows normal with inspection. Breath sounds are clear to auscultation bilaterally. HEART: Shows S1 and S2 clear. No murmurs auscultated. ABDOMEN: Soft, nontender and nondistended. No palpable organomegaly is noted. No rebound or guarding demonstrated. BACK: Shows spine grossly in the midline, slight decrease in the lumbar lordotic curvature with well-healed surgical scar noted in the lumbar distribution in the midline. Paraspinous musculature shows symmetrical on inspection, on palpation shows some moderate tenderness but only diffusely bilaterally in the low lumbar distribution. The patient has good rotational motion of the lumbar spine, both laterally as well as extension and flexion without difficulty. EXTREMITIES: The patient's lower extremities show deep tendon reflexes 2+ in the patellar, 1+ tendo-calcaneus tendons. Motor exam is strong with 5/5 dorsiflexion, extension, quadriceps and hamstring flexion equal. Peripheral pulses are 1+ posterior tibial. No peripheral edema is noted bilaterally. Options were discussed with the patient. The patient's old chart was reviewed as well as his current medication regimen updated. Current review of systems updated today as well. We will proceed with a second in this series right L4-L5 transforaminal injection using fluoroscopic guidance. Risks were again discussed including, but not limited to bleeding, infection, possibility of epidural hematoma, subsequent neurological compromise, dural puncture, headaches, spinal cord and/or nerve damage, side effects of steroid medication, potential injection of the vertebral artery at that level from an ischemic damage as well as poor results regarding pain control. The patient understands and wished to proceed. The patient will return to the clinic in approximately 2 weeks for followup, was counseled as to return appointment, activity level and side effects to be aware of. The patient will restart his Xarelto tomorrow. DIAGNOSES: Lumbar radiculopathy with lumbar spinal stenosis and lumbar spondylosis and post-lumbar laminectomy syndrome. PROCEDURE: Right-sided L4-L5 transforaminal injection using C-arm fluoroscopic guidance under sterile prep and drape using local anesthetic. MEDICATION INJECTED: A total of 80 mg Depo-Medrol plus 2 mL of 0.25% bupivacaine and 1.5 mL of Isovue for contrast with no uptake on digital subtraction. CONDITION AT DISCHARGE: Stable. The patient tolerated procedure well, had no complications. RUBIA LOPEZ MD DR: GLADYS/antony JOB#: [id number] / [id number]
== END | disposition home or self-care (01) ==
LOC: PNCL 08:01
PROVIDERS: ATTEND Anesthesiology
DX: M48.061 Spinal stenosis, lumbar region without neurogenic claudication (principal); M47.26 Other spondylosis with radiculopathy, lumbar region; M96.1 Postlaminectomy syndrome, not elsewhere classified
CPT/HCPCS: 64483; J1040; J3490; Q9965; J1030

== ENCOUNTER → 2018-11-20 | Outpatient (CLI) | payer MEDICARE, BC ==
[~2018-11-20] MED LIST changes: -BUPIVACAINE MPF 0.25% 10 ML VIAL. ONE; +CONTRAST GIVEN. MC PRN; +IOHEXOL 180 MG/ML 10 ML VIAL. IT ONE; -IOHEXOL 180 MG/ML 10 ML VIAL. ONE; +METH750T2 PO; +OXYC1TAB15 PO; -methylPREDNISolone ACETATE 40 MG/ML VIAL. ONE; -methylPREDNISolone ACETATE 80 MG/ML VIAL. ONE
[2018-11-20 11:27] VITALS: BP 127/65
--- NOTE | 2018-11-20 12:54 | RAD ---
Lumbar myelogram, 11/20/2018: History: Lumbar radiculopathy, right hip pain Under local anesthesia, aseptic conditions and fluoroscopic guidance a lumbar puncture was performed at the lower L2 level utilizing a 25-gauge Arun spinal needle. Good clear CSF flow was obtained following which 14 cc of Omnipaque 180 was injected into the thecal sac. The spinal needle was then removed and appropriate interval imaging performed. 3.0 minutes of fluoroscopy time was utilized. 11 fluoroscopic spot images were recorded. The patient tolerated the procedure well and was sent to CT in good condition. The following findings are delineated on the myelogram: 1. There is a minimal lumbar scoliosis with moderate marginal spurring at all levels. 2. There are moderate anterior extradural defects at L3-4 and L4-5 and to a lesser degree at L2-3 and L1-2. There is mild posterior extradural defect at L2-3. There is mild associated central spinal stenosis at L2-3 and to a lesser degree at L3-4 in the upright position. 3. Upright lateral views show no significant instability with flexion and extension. 4. There is decreased opacification of the L4 and L5 nerve root sleeves, more so on the right. 5. No other significant intradural or extradural abnormality is detected. CT of the lumbar spine post myelogram, 11/20/2018: Multidetector CT imaging was performed with multiplanar reconstructions produced. The following findings are delineated: 1. No fracture or destructive bony lesion is seen. 2. At L1-2 there is mild posterior disc bulging. There is mild posterior ligamentous thickening due to facet joint arthropathy. The central spinal canal and neural foramina are well maintained. 3. At L2-3 there is mild posterior disc bulging. There is moderate posterior ligamentous thickening with mild facet joint arthropathy. The thecal sac measures 9 mm in AP diameter at the midline. There is minimal inferior foraminal narrowing bilaterally. 4. At L3-4 there is moderate disc space narrowing and marginal spurring. There appear to be bilateral laminectomy defects. The thecal sac measures 10 mm in AP diameter at the midline. There is mild right foraminal narrowing. There is moderate left foraminal narrowing within abnormal density and the left neural foramen compatible with scarring versus lateral disc protrusion. 5. At L4-5 there is a vacuum disc phenomena with moderate broad-based posterior disc bulging. There appear to have been bilateral laminectomies. There is moderate facet joint arthropathy. The thecal sac measuring 9-10 mm in AP diameter at the midline. The combination of findings is causing moderate right foraminal encroachment and mild left foraminal narrowing. 6. At L5-S1 there is mild posterior disc bulging. There are mild degenerative changes involving the facet joints. The central spinal canal and neural foramina are well maintained. IMPRESSION: 1. Moderate multilevel degenerative changes as described above. 2. Borderline narrowing of the central spinal canal at L2-3, L3-4 and L4-5. 3. Moderate right foraminal encroachment at L4-5 and left foraminal encroachment at L3-4. PQRS Compliance Statement: One or more of the following individualized dose reduction techniques were utilized for this examination: 1. Automated exposure control 2. Adjustment of the mA and/or kV according to patient size 3. Use of iterative reconstruction technique
== END | disposition home or self-care (01) ==
LOC: RAD 09:10
PROVIDERS: ATTEND Neurological Surgery
DX: M48.061 Spinal stenosis, lumbar region without neurogenic claudication (principal); M41.86 Other forms of scoliosis, lumbar region; M12.88 Other specific arthropathies, not elsewhere classified, other specified site; M54.16 Radiculopathy, lumbar region
CPT/HCPCS: 72132; 72265; Q9965

== ENCOUNTER → 2019-01-13 | Outpatient (CLI) | payer MEDICARE, BC ==
[2018-11-20 11:27] VITALS: BP 127/65
[~2019-01-13] MED LIST changes: -CONTRAST GIVEN. MC PRN; -IOHEXOL 180 MG/ML 10 ML VIAL. IT ONE
[2019-01-13 10:02] LABS: BASO # 0.1 x10^3/uL (0.0-0.2); BASO % 1 % (0-3); EOS # 0.2 x10^3/uL (0.0-0.7); EOS % 5 % (0-3); HEMATOCRIT 41.7 % (39.0-53.0); HEMOGLOBIN 14.1 g/dL (13.0-17.5); LYMPH # 1.4 x10^3/uL (1.0-4.8); LYMPH % 30 % (24-48); MEAN CORPUSCULAR HEMOGLOBIN 34 pg (25-35); MEAN CORPUSCULAR HGB CONC 34 g/dL (31-37); MEAN CORPUSCULAR VOLUME 99 fL (79-100); MONO # 0.5 x10^3/uL (0.0-1.1); MONO % 11 % (0-9); NEUT # 2.4 x10^3uL (1.8-7.7); NEUT % 53 % (31-73); PLATELET COUNT 252 x10^3/uL (140-400); RED CELL DISTRIBUTION WIDTH 12.3 % (11.5-14.5); WHITE BLOOD COUNT 4.6 x10^3/uL (4.0-11.0)
[2019-01-13 10:13] LABS: PROTHROMBIN TIME PATIENT 23.7 SEC (11.7-14.0)
[2019-01-13 10:15] LABS: ALBUMIN 3.8 g/dL (3.4-5.0); ALBUMIN/GLOBULIN RATIO 1.1 (1.0-1.7); CALCIUM 9.7 mg/dL (8.5-10.1); CREATININE 1.1 mg/dL (0.7-1.3); GFR 65.6; POTASSIUM 4.2 mmol/L (3.5-5.1); TOTAL BILIRUBIN 0.4 mg/dL (0.2-1.0); TOTAL PROTEIN 7.4 g/dL (6.4-8.2)
== END | disposition home or self-care (01) ==
LOC: SURGPAT 09:19
PROVIDERS: ATTEND Neurological Surgery
DX: Z01.818 Encounter for other preprocedural examination (principal); M48.062 Spinal stenosis, lumbar region with neurogenic claudication; M54.16 Radiculopathy, lumbar region; Z79.899 Other long term (current) drug therapy; Z79.01 Long term (current) use of anticoagulants
CPT/HCPCS: 36415; 80053; 85025; 85610; 85730; 87641

== ENCOUNTER 2019-01-19 05:58 | Inpatient (IN) | payer MEDICARE, BC ==
--- NOTE | 2019-01-15 17:04 | PREOP HP ---
DATE OF SERVICE: 01/19/2019 HISTORY OF PRESENT ILLNESS: The patient is a pleasant 73-year-old who in 11/2017 underwent lumbar microsurgery at L3-L4 and L4-L5 bilaterally. He did well from that surgery. He said he has always had some right hip and right thigh pain even after surgery. He relates that the pain has slowly been worsening. The pain tends to radiate to the right hip and right anterior thigh. He rates his pain as a 1/10 with sitting, but he can reach a 7/10 with walking. Standing increases his pain. He has had epidural steroid injections as recently as 09/09 without benefit. He did do postoperative physical therapy in the months following his lumbar surgery, which did not help him. PAST MEDICAL HISTORY: AFib, arthritis, hypertension, shingles. PAST SURGICAL HISTORY: Prostate surgery, cardioversion, lumbar microdecompression L3-L4 and L4-L5 bilaterally in 11/2017. FAMILY HISTORY: Diabetes and heart disease. SOCIAL HISTORY: Retired. Nonsmoker. Drinks alcohol 1-2 times per year. ALLERGIES: No known drug allergies. CURRENT MEDICATIONS: Tylenol, metoprolol, Xarelto, simvastatin, lisinopril, aspirin, fish oil, cranberry and Robaxin. REVIEW OF SYSTEMS: A 12-point review of systems was obtained and is noncontributory except for that mentioned above. PHYSICAL EXAMINATION: NEUROSURGERY EXAMINATION: GENERAL APPEARANCE: Alert, pleasant, no acute distress. HEAD: Normocephalic and atraumatic. SKIN: Warm and dry, well-healed lumbar incision. MUSCULOSKELETAL: Lumbar paraspinal muscle bulk is normal, restricted range of motion of the lumbar spine, jgrr-zz-zhdnitki tenderness of the lower lumbar spine with palpation, normal range of motion of the lower extremities bilaterally. EXTREMITIES: No clubbing, cyanosis or edema. NEUROLOGIC: Alert and oriented x 3, normal recent and remote memory, strength 5/5 in bilateral lower extremities, sensory was intact to light touch in the lower extremities bilaterally. Reflexes are present and symmetric in bilateral lower extremities, normal gait. IMAGING: Reviewed. I reviewed a lumbar myelogram. On that study, there is mild scoliosis. There is disk bulging at L4-L5 with moderately severe right foraminal narrowing at that level. There is no abnormal motion on flexion and extension films. ASSESSMENT: 1. Radiculopathy, lumbar region. 2. Spinal stenosis, lumbar region with neurogenic claudication. PLAN: The neural foraminal narrowing on the right at L4-L5, I believe is responsible for his right lumbar radiculopathy, which is mostly in an L4 distribution. At this point, I explained the most prudent course would be to perform instrumentation with diskectomy combined with an interbody fusion at L4-L5 to open the foramen and help him with his pain. At this point, he will consider his options and he will let us know if he wishes to proceed with that. I did outline the technique of the operation. He understands. He would like to proceed. We will make the arrangements. OSCAR JIMÉNEZ MD DR: HAIDER/antony JOB#: [id number] / [id number]
[~2019-01-19] VITALS: Ht 175.3 cm; Wt 91.2 kg
[2019-01-19] VITALS (9 sets, daily range): BP systolic 108–134; BP diastolic 72–84
[~2019-01-19 05:58] MED LIST changes: -0.9 % SODIUM CHLORIDE 20 ML VIAL. IJ ONE; -DESFLURANE > 120 MINUTES IH ONE; -DEXAMETHASONE SOD PHOS 20 MG/5 ML VIAL. ONE; -LIDOCAINE 2% PF 5 ML VIAL. ONE; -METH750T2 PO; -ONDANSETRON PF 4 MG/2 ML VIAL. ONE; -OXYC1TAB15 PO; -PHENYLEPHRINE in 0.9% NACL PF 1 MG/10 ML SYRINGE. IV ONE; -PROPOFOL 10 MG/ML (50ML) VIAL. IV ONE; -PROPOFOL 20 ML IV ONE; -PROPOFOL 50 ML IV ONE; -REMIFENTANIL 1 MG VIAL. IV ONE; -REMIFENTANIL 2 MG VIAL. IV ONE; -ROCURONIUM 50 MG/5 ML VIAL. ONE; -SUCCINYLCHOLINE 200 MG/10 ML VIAL. ONE; -ceFAZolin SODIUM 1 GM VIAL ONE; -ePHEDrine PF IN SALINE 50 MG/10 ML SYRINGE. IV ONE; -fentaNYL PF VIAL 100 MCG/2 ML VIAL ONE
[2019-01-19] MEDS ORDERED: BACITRACIN 50,000 UNIT in IV NORMAL SALINE 1000ML BAG 1,000 ML IRR ONE (06:00)
[2019-01-19] MEDS ORDERED: BUPIVAC MPF-EPI 0.5%-1:200000 30 ML VIAL. ONE (06:12)
[2019-01-19] MEDS ORDERED: GELATIN SPONGE SIZE 12-7MM SPONGE. ONE (06:12)
[2019-01-19] MEDS ORDERED: THROMBIN TOPICAL 20,000 UNIT SPRAY.SYRN KIT TP ONE (06:13)
[2019-01-19] MEDS ORDERED: KETOROLAC 60 MG/2 ML INJ FOR OR. ONE (06:13)
[2019-01-19 06:45] LABS: PROTHROMBIN TIME PATIENT 13.2 SEC (11.7-14.0)
[2019-01-19] MEDS ORDERED: fentaNYL PF VIAL 100 MCG/2 ML VIAL IV PRN ×2 (07:00→10:00)
[2019-01-19] MEDS ORDERED: HYDROmorphone 2 MG/ML VIAL IV PRN (07:00)
[2019-01-19] MEDS ORDERED: LIDOCAINE 1% PF 2 ML VIAL. ID PRN (07:00)
[2019-01-19] MEDS ORDERED: PROCHLORPERAZINE 10 MG/2 ML VIAL. IV PRN (07:00)
[2019-01-19] MEDS ORDERED: ONDANSETRON PF 4 MG/2 ML VIAL. IV PRN ×2 (07:00→10:00)
[2019-01-19] MEDS: IV RINGERS,LACTATED 1000ML 1,000 ML IV SCH ×2 (07:01→15:06)
[2019-01-19] MEDS ORDERED: diphenhydrAMINE HCL 25 MG CAPSULE PO PRN (10:00)
[2019-01-19] MEDS ORDERED: 0.9 % SODIUM CHLORIDE 10 ML DISP.SYRIN. IV PRN (10:00)
[2019-01-19] MEDS ORDERED: MAGNESIUM HYDROXIDE 2,400 MG/30 ML ORAL.SUSP. PO PRN (10:00)
[2019-01-19] MEDS ORDERED: CALCIUM CARBONATE 500 MG TAB.CHEW PO PRN (10:00)
[2019-01-19] MEDS ORDERED: MAG HYDROX/ALUMINUM HYD/SIMETH 30 ML ORAL.SUSP PO PRN (10:00)
[2019-01-19] MEDS ORDERED: ACETAMINOPHEN 325 MG TABLET. PO PRN (10:00)
[2019-01-19] MEDS ORDERED: NALOXONE 0.4 MG/ML VIAL. IV PRN (10:00)
[2019-01-19] MEDS ORDERED: oxyCODONE/APAP 5/325 1 TAB TABLET PO PRN (10:00)
[2019-01-19] MEDS: POTASSIUM CL 20MEQ D5-0.45NACL 1,000 ML IV SCH (11:00)
[2019-01-19] MEDS ORDERED: ceFAZolin SODIUM 1 GM in IV DEXTROSE 5% 50 ML IV SCH (14:00)
[2019-01-19] MEDS: fentaNYL PF VIAL 100 MCG/2 ML VIAL IV PRN ×3 (15:07→15:56)
[2019-01-19] MEDS: MORPHINE SULFATE 2 MG/ML VIAL. IV PRN ×2 (15:08→15:24)
--- NOTE | 2019-01-19 17:00 | NUR ---
received from recovery. he is alert and oriented. he has good lower extremity strength ., pulses and sensation bilaterally. lue is painful and has decreased ROM since rotator cuff repair in September this year. Robert to dd and is patent with straw colored urine. family at bedside. tolerating water without complaints of nausea. he refused pain medication at this time.
[2019-01-19] MEDS: ceFAZolin SODIUM IV Push 1 GM VIAL. IVP SCH (18:15)
--- NOTE | 2019-01-19 18:30 | NUR ---
repositioned onto right side but unable to tolerate; repositioned onto back. new ice placed to lower back and left shoulder. refused pain medication at this time. family depart
--- NOTE | 2019-01-19 19:30 | NUR ---
patient alert and oriented x4,rating pain on lower back as 1 achy pain offered pain meds stated dont need it @ this time handgrip strong and equal on bilateral hand denies numbness on bilateral lower extremities,saline lock on left hand intact patient tolerating po adequately no complain of nausea and vomiting
[2019-01-19] MEDS ORDERED: METOPROLOL SUCC 24HR ER 25 MG TAB.ER.24H. PO SCH (21:00)
[2019-01-19] MEDS: SIMVASTATIN 20 MG TABLET PO SCH (21:10)
[2019-01-19] MEDS: DOCUSATE SODIUM 100 MG CAPSULE. PO SCH (21:11)
[2019-01-19] MEDS: LISINOPRIL 5 MG TABLET. PO SCH (21:12)
[2019-01-19] MEDS: oxyCODONE/APAP 5/325 1 TAB TABLET PO PRN (21:13)
[2019-01-20] VITALS (10 sets, daily range): BP systolic 81–116; BP diastolic 54–71
[2019-01-20] MEDS: POTASSIUM CL 20MEQ D5-0.45NACL 1,000 ML IV SCH (00:20)
[2019-01-20] MEDS: ceFAZolin SODIUM IV Push 1 GM VIAL. IVP SCH ×2 (02:04→09:41)
[2019-01-20] MEDS: oxyCODONE/APAP 5/325 1 TAB TABLET PO PRN ×2 (05:22→13:13)
[2019-01-20] MEDS: DOCUSATE SODIUM 100 MG CAPSULE. PO SCH ×2 (08:56→21:15)
[2019-01-20] MEDS: METOPROLOL SUCC 24HR ER 25 MG TAB.ER.24H. PO SCH (09:00)
[2019-01-20] MEDS ORDERED: OXYC1TAB15 PO (13:22)
[2019-01-20] MEDS ORDERED: DOCU-109 PO (13:22)
[2019-01-20] MEDS ORDERED: METH750T2 PO (13:22)
--- NOTE | 2019-01-20 13:23 | DISCH ---
DISCHARGE INSTRUCTIONS Condition on Discharge Condition on Discharge: Stable Activity After Discharge Activity Instructions for Disc: Activity as tolerated, Avoid exertion Bathing Instructions: Shower-keep dressing dry Lifting Instructions after Dis: No heavy lifting, No pulling or pushing, Do not lift >10 pounds Driving Instructions after Dis: No driving for 2 weeks Diet after Discharge Additional Diet Restrictions: resume home diet Wound Incision Care Wound/Incision Care: Ice to area for comfort Other wound/incision instructi: may remove dressing in 48 hours if dry then may shower, no soaking Contacting the after DC Call your doctor for: Concerns you may have Follow-Up Follow up with: Dr. Jiménez's nurse in 2 weeks [phone] OSCAR JIMÉNEZ MD Jan 20, 2019 13:23
--- NOTE | 2019-01-20 14:24 | NUR ---
RENE IS SITTING UP IN CHAIR; AT BEDSIDE. BLOOD PRESSURE TAKEN AND IS 81/55. STATES HE FEELS A LITTLE LIGHTHEADED. REPEATED BLOOD PRESSURE IS 89/54.
[2019-01-20] MEDS: METHOCARBAMOL 750 MG TABLET PO PRN (18:39)
[2019-01-20] MEDS: LISINOPRIL 5 MG TABLET. PO SCH (21:00)
[2019-01-20] MEDS: SIMVASTATIN 20 MG TABLET PO SCH (21:15)
[2019-01-21] MEDS: METHOCARBAMOL 750 MG TABLET PO PRN (03:20)
[2019-01-21 03:33] VITALS: BP 113/72
[2019-01-21 06:27] VITALS: BP 115/74
[2019-01-21] MEDS: DOCUSATE SODIUM 100 MG CAPSULE. PO SCH (07:34)
[2019-01-21] MEDS: METOPROLOL SUCC 24HR ER 25 MG TAB.ER.24H. PO SCH (07:35)
--- NOTE | 2019-01-21 09:00 | PDOC2 ---
UROLOGY CONSULT Date of Consult Date of Consult DATE: 01/21/19 TIME: 08:52 Reason for Consult Reason for Consult: Difficult cath, pt has history of BPH Identification/Chief Complaint Chief Complaint Difficult cath, pt has history of BPH Source Source: Caregiver, Chart review, Patient History of Present Illness Reason for Visit: Patient is a 73 year old male and is a patient of Dr. Pitts's. He underwent lumbar decomp L4-L5 Anterior and posterior fusion with instrumentation on the [address] Cheatham. As they were prepping the patient for surgery, they were unable to place a Robert catheter and so Dr. Pitts did this for them. Patient has a history of BPH and did have a prostate procedure with Dr. Pitts 10 years ago, but this only had minimal effect. He reports that he does not empty his bladder completely as part of his norm. He would like the catheter removed if possible today and would like to get re-established with a Urologist as he has not seen one since 2016. . Past Medical History Renal/: Benign prostatic enlarg. Current Problem List Problems: (1) BPH (benign prostatic hyperplasia) (2) Lumbar stenosis with neurogenic claudication Current Medications Current Medications Current Medications Metoprolol Succinate (Toprol Xl) 12.5 mg DAILY PO Last administered on 01/21/19at 07:35; Start 01/20/19 at 09:00 Allergies Allergies: Coded Allergies: No Known Drug Allergies (Unverified , 01/19/19) ROS Review Of Systems: CONSTITUTIONAL: No fever or chills EYES: No recent changes SKIN: No rash or itching CARDIOVASCULAR: No chest pain, syncope, palpitations, or edema RESPIRATORY: No SOB or cough GASTROINTESTINAL: No nausea, vomiting or abdominal pain NEUROLOGICAL: No headaches or weakness ENDOCRINE: No cold or heat intolerance GENITOURINARY: + Indwelling Robert catheter MUSCULOSKELETAL: Recent surgery LYMPHATICS: No enlarged lymph nodes PSYCHIATRIC: No anxiety or depression Physical Exam Physical Exam: General: Pleasant, no acute distress, well groomed Eyes: conjunctiva anicteric, eyes full range of motion ENT: moist oral mucosa, normal dentition Neck: Trachea midline, no masses Respiratory: unlabored breathing, not using accessory muscles, Abdomen: nontender, nondistended, no hepatosplenomegaly, no masses : Robert catheter in place draining clear yellow urine. Device removed by RAILROADER Benito with no difficulty. Skin: no rashes or skin lesions on visualized skin Psych: normal mood, affect. Alert and oriented x 3. Vitals VITALS Vital Signs Date Time Temp Pulse Resp B/P (MAP) Pulse Ox O2 Delivery O2 Flow Rate FiO2 01/21/19 07:35 89 114/72 01/21/19 06:27 97.3 20 96 Room Air 97.3 Labs Labs Laboratory Tests Test 01/20/19 15:30 Hemoglobin 12.2 g/dL (13.0-17.5) Laboratory Tests Test 01/20/19 15:30 Hemoglobin 12.2 g/dL (13.0-17.5) Assessment/Plan Assessment/Plan 0900: Robert catheter removed by RAILROADER Benito with no difficulty. Pt may attempt voiding in one to one and a half hours from now, then every hour to hour and a half thereafter. RN to bladder scan patient between 1 and 2 pm today. If PVR less than 350 and patient voiding, then please leave Robert out and encourage voiding. If PVR greater than 350 and patient unable to void, then please call Urology for further instructions, since patient is a difficult cath. UPDATE 1330: Pt has been voiding all day per RN Bladder scan results =102. Pt has passed his voiding trial. Nursing to leave Robert out for remainder of hospitalization and encourage voiding. Ok to discharge whenever other treating physicians are ready. A follow up appointment has been arranged for patient to [place] [facility] [place] 10 [place]. Pt given appointment card. All questions answered. Will sign off at this time, but please call with questions or changes in patient condition. . MAURICIO ALAS RETAIL MARKETING EXECUTIVE Jan 21, 2019 09:00
--- NOTE | 2019-01-21 09:15 | NUR ---
Patient complaining about discomfort from the Robert. POLICY ISSUE CLERK Coleen Oliver just came in to assess patient and removed his Robert catheter without any complications. Orders placed and will be followed. Will continue to monitor.
[2019-01-21 12:09] VITALS: BP 123/79
--- NOTE | 2019-01-21 13:16 | PDOC ---
PROGRESS NOTES Subjective Subjective POD #2 up ambulating in room no significant pain thomson out, voided Objective Objective Vital Signs Date Time Temp Pulse Resp B/P (MAP) Pulse Ox O2 Delivery O2 Flow Rate FiO2 01/21/19 07:45 Room Air 01/21/19 07:35 89 114/72 01/21/19 06:27 97.3 20 96 97.3 01/19/19 15:24 10.0 Intake and Output 01/21/19 07:00 Intake Total 2590 ml Output Total 4400 ml Balance -1810 ml Intake Oral 2590 ml Output Urine Total 4400 ml Physical Exam General: Alert, Oriented X3, Cooperative, No acute distress Neuro: Normal speech Skin: Other (Dressing D & I) Plan Plan of Care ok to dc if ok with urology f/u 2 weeks Comment Review of Relevant I have reviewed the following items epifanio (where applicable) has been applied. Labs Laboratory Tests Test 01/20/19 15:30 Hemoglobin 12.2 g/dL (13.0-17.5) Laboratory Tests Test 01/20/19 15:30 Hemoglobin 12.2 g/dL (13.0-17.5) Medications Current Medications Ondansetron HCl (Zofran) 4 mg PRN Q6HRS PRN IV NAUSEA/VOMITING; Start 01/19/19 at 07:00; Stop 01/20/19 at 06:59; Status DC Fentanyl Citrate (Fentanyl 2ml Vial) 25 mcg PRN Q5MIN PRN IV MILD PAIN 1-3; Start 01/19/19 at 07:00; Stop 01/20/19 at 06:59; Status DC Fentanyl Citrate (Fentanyl 2ml Vial) 50 mcg PRN Q5MIN PRN IV MODERATE TO SEVERE PAIN Last administered on 01/19/19at 15:56; Start 01/19/19 at 07:00; Stop 01/20/19 at 06:59; Status DC Morphine Sulfate (Morphine Sulfate) 1 mg PRN Q10MIN PRN IV SEVERE PAIN 7-10 Last administered on 01/19/19at 15:24; Start 01/19/19 at 07:00; Stop 01/20/19 at 06:59; Status DC Ringer's Solution 1,000 ml @ 30 mls/hr Q24H IV Last administered on 01/19/19at 15:06; Start 01/19/19 at 07:00; Stop 01/19/19 at 18:59; Status DC Lidocaine HCl (Xylocaine-Mpf 1% 2ml Vial) 2 ml PRN 1X PRN ID PRIOR TO IV START; Start 01/19/19 at 07:00; Stop 01/20/19 at 06:59; Status DC Hydromorphone HCl (Dilaudid) 0.5 mg PRN Q10MIN PRN IV SEV PAIN, Second choice; Start 01/19/19 at 07:00; Stop 01/20/19 at 06:59; Status DC Prochlorperazine Edisylate (Compazine) 5 mg PACU PRN PRN IV NAUSEA, MRX1; S tart 01/19/19 at 07:00; Stop 01/20/19 at 06:59; Status DC Bacitracin 65697 unit/Sodium Chloride 1,000 ml @ 1,000 mls/hr 1X ONCE IRR Last administered on 01/19/19at 10:06; Start 01/19/19 at 06:00; Stop 01/19/19 at 06:59; Status DC Cefazolin Sodium/ Dextrose 50 ml @ 100 mls/hr 1X ONCE IV Last administered on 01/19/19at 09:43; Start 01/19/19 at 06:00; Stop 01/19/19 at 06:29; Status DC Bupivacaine HCl/ Epinephrine Bitart (Sensorcain-Mpf Epi 0.5%-1:681409) 30 ml STK-MED ONCE .ROUTE Last administered on 01/19/19at 10:06; Start 01/19/19 at 06:12; Stop 01/19/19 at 07:12; Status DC Gelatin (Gelfoam Size 12-7mm) 1 each STK-MED ONCE .ROUTE Last administered on 01/19/19at 10:06; Start 01/19/19 at 06:12; Stop 01/19/19 at 07:13; Status DC Ketorolac Tromethamine (Toradol For Or Only) 60 mg STK-MED ONCE .ROUTE Last administered on 01/19/19at 10:06; Start 01/19/19 at 06:13; Stop 01/19/19 at 07:13; Status DC Thrombin 20,000 unit STK-MED ONCE TP Last administered on 01/19/19at 10:06; Start 01/19/19 at 06:13; Stop 01/19/19 at 07:13; Status DC Lisinopril (Prinivil) 5 mg HS PO Last administered on 01/19/19at 21:12; Start 01/19/19 at 21:15 Metoprolol Succinate (Toprol Xl) 12.5 mg HS PO ; Start 01/19/19 at 21:00; Stop 01/19/19 at 21:09; Status DC Simvastatin (Zocor) 20 mg HS PO Last administered on 01/20/19at 21:15; Start 01/19/19 at 21:00 Fentanyl Citrate (Fentanyl 2ml Vial) 50 mcg PRN Q2HR PRN IV PAIN; Start 01/19/19 at 10:00 Acetaminophen (Tylenol) 650 mg PRN Q6HRS PRN PO MILD PAIN / TEMP; Start 01/19/19 at 10:00 Al Hydroxide/Mg Hydroxide (Mylanta Plus Xs) 30 ml PRN Q3HRS PRN PO HEARTBURN / GAS; Start 01/19/19 at 10:00 Calcium Carbonate/ Glycine (Tums) 500 mg PRN Q3HRS PRN PO INDIGESTION; Start 01/19/19 at 10:00 Diphenhydramine HCl (Benadryl) 25 mg PRN Q6HRS PRN PO ITCHING; Start 01/19/19 at 10:00 Naloxone HCl (Narcan) 0.1 mg PRN Q2MIN PRN IV ADMIN; Start 01/19/19 at 10:00 Sodium Chloride (Normal Saline Flush) 3 ml QSHIFT PRN IV AFTER MEDS AND BLOOD DRAWS; Start 01/19/19 at 10:00 Potassium Chloride/Dextrose/ Sod Cl 1,000 ml @ 75 mls/hr [id number] IV ; Start 01/19/19 at 11:00; Stop 01/20/19 at 07:02; Status DC Oxycodone/ Acetaminophen (Percocet 5/325) 1 tab PRN Q4HRS PRN PO MODERATE PAIN Last administered on 01/20/19at 13:13; Start 01/19/19 at 10:00 Oxycodone/ Acetaminophen (Percocet 5/325) 2 tab PRN Q4HRS PRN PO SEVERE PAIN; Start 01/19/19 at 10:00 Methocarbamol (Robaxin) 750 mg TID PRN PRN PO MUSCLE SPASMS Last administered on 01/21/19at 03:20; Start 01/19/19 at 10:00 Docusate Sodium (Colace) 100 mg BID PO Last administered on 01/21/19at 07:34; Start 01/19/19 at 21:00 Magnesium Hydroxide (Milk Of Magnesia) 2,400 mg PRN Q12HR PRN PO CONSTIPATION Last administered on 01/21/19at 06:20; Start 01/19/19 at 10:00 Ondansetron HCl (Zofran) 4 mg PRN Q6HRS PRN IV NAUESA, 1ST CHOICE; Start 01/19/19 at 10:00 Cefazolin Sodium 1 gm/Dextrose 50 ml @ 100 mls/hr Q8HRS IV ; Start 01/19/19 at 14:00; Stop 01/20/19 at 06:29; Status UNV Cefazolin Sodium (Ancef) 1 gm Q8H IVP Last administered on 01/20/19at 09:41; Start 01/19/19 at 18:00; Stop 01/20/19 at 10:01; Status DC Metoprolol Succinate (Toprol Xl) 12.5 mg DAILY PO Last administered on 01/21/19at 07:35; Start 01/20/19 at 09:00 Active Scripts Active Reported Simvastatin 20 Mg Tablet 1 Tab PO QHS Xarelto (Rivaroxaban) 20 Mg Tablet 20 Mg PO DAILY Lisinopril 10 Mg Tablet 5 Mg PO DAILY Metoprolol Succinate ( Xl ) (Metoprolol Succinate) 25 Mg Tab.er.24h 12.5 Mg PO HS Vitals/I & O Vital Sign - Last 24 Hours 01/20/19 01/20/19 01/20/19 01/20/19 14:20 14:21 17:30 19:30 Temp 97.9 97.4 98.4 97.9 97.4 98.4 Pulse 68 67 71 65 Resp 16 16 20 20 B/P (MAP) 81/55 (64) 89/54 (66) 113/71 (85) 109/61 (77) Pulse Ox 94 95 94 O2 Delivery Room Air Room Air Room Air Room Air 01/20/19 01/20/19 01/20/19 01/20/19 20:00 20:50 21:00 22:44 Temp 98.5 98.5 Pulse 65 65 62 Resp 20 B/P (MAP) 116/69 (85) 116/69 99/61 (74) Pulse Ox 94 O2 Delivery Room Air Room Air 01/21/19 01/21/19 01/21/19 01/21/19 03:33 06:27 07:35 07:45 Temp 98.4 97.3 98.4 97.3 Pulse 64 66 89 Resp 18 20 B/P (MAP) 113/72 (86) 115/74 (88) 114/72 Pulse Ox 94 96 O2 Delivery Room Air Room Air Room Air Intake and Output 01/20/19 01/20/19 01/21/19 15:00 23:00 07:00 Intake Total 1200 ml 840 ml 550 ml Output Total 800 ml 850 ml 2750 ml Balance 400 ml -10 ml -2200 ml JEROMY BUSCH IT SERVICE DELIVERY MANAGER Jan 21, 2019 13:16
--- NOTE | 2019-01-21 13:54 | NUR ---
Patient was able to void twice prior to a bladder scan around 1330. At 1300 he voided roughly 250ml into a urinal with a PVR of 200ml. Coleen Oliver present and stated patient did not need a Robert and scheduled a follow up appointment for him in their office. SANIA Courtney also present and stated patient is able to discharge. Discharge instructions gone over with the patient and his by this nurse, therapy, and his doctors. No concerns noted upon discharge. IV discontinued without complications and the dressings to the patients back were changed. Scripts for percocet and robaxin given to the patient and his .
--- NOTE | 2019-01-22 16:07 | PATHOLOGY ---
[facility] Accession Number: [id number] . 01 Material submitted: . vertebral column - LUMBAR DECOMPRESSION AND DISC . 01 Clinical history: . Lumbar stenosis, radiculopathy, neurogenic claudication . 02 Diagnosis: Segments of fibrocartilaginous, adipose, and skeletal muscle tissue and bone, lumbar decompression and disc: - Degenerative changes of fibrocartilaginous tissue. ([facility] 01/22/2019) P/01/22/2019 . 02 Comment: There is no evidence of an acute inflammatory process or malignancy. ([facility] 01/22/2019) . 02 Electronically signed: . Shelton Fan MD, Pathologist NPI- [id number] . 01 Gross description: . Received in formalin labeled "Camilo Ward, lumbar decompression and disc," are several pieces of glistening, fibrous tissue measuring 4.5 x 2.3 x 1.9 cm in aggregate dimensions, containing small fragments of possible bone. The tissue submitted representatively in cassette A1, following decalcification. ([facility]; 01/20/2019) TOB/TOB . 02 Pathologist provided ICD-10: M51.36 . 02 CPT . 728100, 262606 Specimen Comment: A courtesy copy of this report has been sent to Specimen Comment: [phone], . Specimen Comment: Report sent to / DR NULL Performed at: 01 [facility] [address], [place] [id number] MD Srini Piper MD Phone: [phone] Performed at: 02 [facility] [address] [place], [place] [id number] MD Shelton Fan MD Phone: [phone]
--- NOTE | 2019-01-22 20:48 | OP ---
DATE OF SURGERY: 01/19/2019 PREOPERATIVE DIAGNOSES: 1. Grade 1 spondylolisthesis, L4-L5. 2. Hypertrophic synovial facet with synovial thickening, right, L4-L5 with compression of the right L4 and L5 nerve roots and severe radiculopathy. POSTOPERATIVE DIAGNOSES: 1. Grade 1 spondylolisthesis, L4-L5. 2. Hypertrophic synovial facet with synovial thickening, right, L4-L5 with compression of the right L4 and L5 nerve roots and severe radiculopathy. OPERATION PERFORMED: 1. Posterior instrumentation, L4-L5 transfacet decompression combined with hemilaminotomy to decompress the course of the L4 root through the foramen and remove the thickened compressive hypertrophic facet and synovium as well as decompress the L5 root. 2. Anterior discectomy L4-L5 from an anterolateral oblique approach with placement of interbody fusion cage packed with allograft and autograft bone In addition to his posterior instrumentation, there was posterolateral fusion, L4-L5. The operation was done with BrainLAB guidance, fluoroscopy, microscopic dissection, bone marrow aspiration. SURGEON: Porfirio Jiménez M.D. CONSULTANT IN ERGONOMICS AND SAFETY: Sue Davis, assisted with the surgery. She assisted with the exposure, the placement of the pedicle screws, the transfacet and hemilaminotomy decompression of the dura and nerve roots on the right side as well as the anterior discectomy from an anterolateral oblique approach and fusion with closure. OPERATIVE INDICATIONS: The patient is a pleasant 73-year-old man who developed intractable back and right leg pain, was found to have spondylolisthesis along with severe neural foraminal narrowing on the right from a combination of factors. I recommended decompression and instrumented fusion both to stop the progression of the spondylolisthesis and also to open the neural foramen on the right at L4-L5. He understood the surgery, the risks, the technique and expected postoperative course and wished to go ahead. DESCRIPTION OF PROCEDURE: Following general endotracheal anesthesia, the patient was positioned prone on the Jason table. Lumbar region prepped and draped in standard fashion. JINA hose and AV impulse boots were applied for DVT prophylaxis. The microscope was draped. Fluoroscopy was draped. Fluoroscopy was draped and brought into the field. Monitoring was established. Ancef 2 g was given less than 1 hour prior to the initiation of the surgery using fluoroscopic guidance. Iliac posts were placed into the left iliac crest and the [employer] system was initialized. I then made a midline incision as the patient had undergone previous lumbar surgery. I dissected down through skin and subcutaneous tissue, reflected the paraspinal muscles and took down scar and exposed the spinous processes of L4 and L5 as well as the lamina and the facets as well as the transverse processes. Self-retaining retractors were placed beginning on the left side. Then, using the BrainLAB system, I drilled into the posterior aspect of the pedicles of L4 and L5. I passed a black ball followed by ball tip probe, followed by tap, followed by screw placement. I did use stimulated EMG monitoring for these maneuvers. I also aspirated 20 mL of bone marrow from the left iliac crest and excoriated the transverse processes and the lateral facet and packed allograft bone into the left side at L4-L5. Pedicle screws using the [employer] system were placed on the left. The eben was placed at 45 mm and nuts were applied, but the system was not torqued. I then went to the right side in a similar fashion created exposure, drilled into the posterior aspect of the pedicles and tapped, but did not yet place screws on the right. I brought in the microscope at this point and began to drill a generous laminotomy and transfacet exposure at L4-L5 on the right. I drilled down until I visualized the L4 root, which was markedly compressed from hypertrophic synovium and hypertrophic bone, which extended around the medial aspect of the pedicles superiorly almost with the appearance of a synovial cyst. I did trim this material away and sent this to pathology with the remainder of the decompression. The L4 root then was very well decompressed throughout. I did extend the hemilaminotomy and I assured myself that the L5 root was also well decompressed. I tapped a disc shaver into the disc space on the right side and opened the disc space up, which allowed for more room for the L4 root as it moved laterally. I placed pedicle screws then on the right side at L4 and L5 and I distracted the disc space. I then tilted the patient away from me and made an incision in the right flank and passed the BrainLAB with sleeve down to dock at the lateral aspect of the pedicle of L5 and moved superiorly to avoid the L4 root far laterally. I passed a dilator followed by a working channel and through this, then performed a discectomy, scraped cartilaginous endplate and then I placed a shield to protect the L4 root on the lateral side and after placing a trial, passed a 9 mm interbody fusion cage, which I left slightly to the right side of midline to be sure that the right foramen was kept widely open. This was packed with allograft and autograft bone. The autograft bone came from the decompression. Allograft bone was forced into the cage and then the cage was tapped into position and released. I then compressed very slightly and torqued the screws sequentially on the right side. I did during this time also excoriate the lateral facet and the transverse processes and packed allograft bone with some autograft bone into the right lateral gutter. This accomplished, then I torqued the left side in a sequential fashion and then irrigated copiously with antibiotic solution. I felt that I had an excellent decompression and instrumentation and fusion. I irrigated, closed the wound then with absorbable sutures. The skin was closed with 4-0 subcuticular stitch. The operation went very well. The patient awakened uneventfully, taken to recovery room with excellent strength in his lower extremities and marked improvement in his radicular pain. I was quite pleased with the surgery. PORFIRIO JIMÉNEZ MD DR: HAIDER/antony JOB#: [id number] / [id number] SUSAN
== END 2019-01-21 13:55 | disposition home or self-care (01) | DRG 455 ==
LOC: OPSVCIP 05:58 → 4 SOUTHEST 16:53
PROVIDERS: ADMIT Neurological Surgery; ATTEND Neurological Surgery
PROC: 0SG0071 Fusion of Lumbar Vertebral Joint with Autologous Tissue Substitute, Posterior Approach, Posterior Column, Open Approach (ICD-10-PCS; 2019-01-19)
PROC: 0SB20ZZ Excision of Lumbar Vertebral Disc, Open Approach (ICD-10-PCS; 2019-01-19)
PROC: 01NB0ZZ Release Lumbar Nerve, Open Approach (ICD-10-PCS; 2019-01-19)
PROC: 4A11X4G Monitoring of Peripheral Nervous Electrical Activity, Intraoperative, External Approach (ICD-10-PCS; 2019-01-19)
PROC: 07DR3ZZ Extraction of Iliac Bone Marrow, Percutaneous Approach (ICD-10-PCS; 2019-01-19)
PROC: 0SG00A0 Fusion of Lumbar Vertebral Joint with Interbody Fusion Device, Anterior Approach, Anterior Column, Open Approach (ICD-10-PCS; principal; 2019-01-19 08:30)
DX: M48.062 Spinal stenosis, lumbar region with neurogenic claudication (principal); M54.16 Radiculopathy, lumbar region; I10 Essential (primary) hypertension; I48.91 Unspecified atrial fibrillation; M19.90 Unspecified osteoarthritis, unspecified site; M43.16 Spondylolisthesis, lumbar region; N40.0 Benign prostatic hyperplasia without lower urinary tract symptoms; Z83.3 Family history of diabetes mellitus; M67.28 Synovial hypertrophy, not elsewhere classified, other site
CPT/HCPCS: 36415; 76000; 85018; 85610; 85730; 86850; 86900; 86901; 88304; 88311; A7015; C1713; C1893; J0690; J0696; J1885; J2270; J3010; J3490; J7030; J7120; 97110; 97116; 97530

== ENCOUNTER → 2019-01-19 | Outpatient (CLI) | payer MEDICARE, BC ==
[2018-11-20 11:27] VITALS: BP_SYST 127
[~2019-01-19] MED LIST changes: +0.9 % SODIUM CHLORIDE 20 ML VIAL. IJ ONE; +DESFLURANE > 120 MINUTES IH ONE; +DEXAMETHASONE SOD PHOS 20 MG/5 ML VIAL. ONE; +LIDOCAINE 2% PF 5 ML VIAL. ONE; +ONDANSETRON PF 4 MG/2 ML VIAL. ONE; +PHENYLEPHRINE in 0.9% NACL PF 1 MG/10 ML SYRINGE. IV ONE; +PROPOFOL 10 MG/ML (50ML) VIAL. IV ONE; +PROPOFOL 20 ML IV ONE; +PROPOFOL 50 ML IV ONE; +REMIFENTANIL 1 MG VIAL. IV ONE; +REMIFENTANIL 2 MG VIAL. IV ONE; +ROCURONIUM 50 MG/5 ML VIAL. ONE; +SUCCINYLCHOLINE 200 MG/10 ML VIAL. ONE; +ceFAZolin SODIUM 1 GM VIAL ONE; +ePHEDrine PF IN SALINE 50 MG/10 ML SYRINGE. IV ONE; +fentaNYL PF VIAL 100 MCG/2 ML VIAL ONE
[2019-01-19 06:30] VITALS: BP_DIAS 63
--- NOTE | 2019-01-19 08:47 | RAD ---
EXAM: CT lumbar spine without contrast. HISTORY: Low back pain. Lower extremity radiculopathy. Neurogenic claudication. TECHNIQUE: CT of the lumbar spine was performed without intravenous contrast. COMPARISON: 11/20/2018. FINDINGS: Calcified mediastinal lymph nodes are likely secondary to old granulomatous disease. Scattered atherosclerotic calcifications are noted. There are bilateral L4 pars interarticularis defect. There is no associated listhesis. There is a mild lumbar dextrocurvature. Vertebral body heights are maintained. Degenerative disc disease is moderate to severe from L3 through L5 and mild from L1 through L3. Disc height is preserved at L5-S1. There is slight retrolisthesis from L1 through L3. At L1-2, there is a small posterior disc bulge. Facet and ligamentum flavum hypertrophy is mild. Foraminal narrowing is mild bilaterally. At L2-3, there is a small posterior disc bulge. Facet and ligamentum flavum hypertrophy is moderate. Central canal stenosis is mild. At L3-4, there is a moderate posterior disc-osteophyte complex. The left inferior articular process has been resected and there are bilateral hemilaminotomy changes. Central canal stenosis appears moderate, but this is better detailed on recent myelography where it appeared mild. Foraminal stenosis is mild bilaterally. At L4-5, there is a moderate posterior disc bulge. A superimposed right paracentral disc protrusion contains a vacuum phenomenon. Central canal stenosis appears moderate to severe, but this is better detailed on recent myelography where it appeared mild to moderate. Foraminal stenosis is mild on the left and moderate on the right. Bilateral hemilaminotomy changes are noted. At L5-S1, there is a small posterior disc bulge. There is no stenosis. The ligamentous portions of both sacroiliac joints are ankylosed in a pattern consistent with diffuse idiopathic skeletal hyperostosis. IMPRESSION: 1. Bilateral nondisplaced L4 pars interarticularis defects. 2. Slight retrolisthesis from L1 through L3. 3. Degenerative disc disease is moderate to severe from L3 through L5 and mild from L1 through L3. 4. Central canal stenosis appears at least moderate from L3 through L5, but this is less well characterized than on recent myelography where it appeared mild to moderate at these levels as detailed above. It is mild at L2-3. 5. Foraminal stenosis is moderate on the right at L4-5 and mild elsewhere as above. One or more of the following individualized dose reduction techniques were utilized for this examination: 1. Automated exposure control. 2. Adjustment of the mA and/or kV according to patient size. 3. Use of iterative reconstruction technique.
== END | disposition home or self-care (01) ==
LOC: CT 11:35
PROVIDERS: ATTEND Neurological Surgery
DX: M48.062 Spinal stenosis, lumbar region with neurogenic claudication (principal); M51.16 Intervertebral disc disorders with radiculopathy, lumbar region; M89.38 Hypertrophy of bone, other site; M25.78 Osteophyte, vertebrae; I70.0 Atherosclerosis of aorta
CPT/HCPCS: 72131; J0171; J0330; J0690; J1100; J2001; J2370; J2405; J2704; J3010

== ENCOUNTER → 2019-04-14 | Outpatient (CLI) | payer MEDICARE, BC ==
[2019-01-19 06:30] VITALS: BP 127/63
[~2019-04-14] MED LIST changes: +METH750T2 PO; +OXYC1TAB15 PO
--- NOTE | 2019-04-14 08:18 | RAD ---
LUMBAR SPINE 2-3V 04/14/2019 12:00 AM Indication: Status post lumbar fusion COMPARISON: Lumbar spine CT 01/19/2019 TECHNIQUE: 3 views of the lumbar spine are provided. Findings: Posterior and interbody fusion hardware is identified at L4-L5 with bilateral pedicle screws and dual rods. There is no lucency surrounding the hardware. There is minimal retrolisthesis of L2 on L3 and L1 on L2, stable from the prior examination. Mild to moderate disc height loss is identified at L3-L4 with vacuum disc phenomenon. Moderate facet arthropathy is noted in the lower lumbar spine. Nonobstructive bowel gas pattern. Visualized portions of the sacrum appear intact. Vascular calcifications are identified within the pelvis. Impression: Status post posterior and interbody fusion at L4-L5 without evidence for hardware failure. Similar retrolisthesis of L1 on L2 and L2 on L3. Electronically signed by: Rachel Santos MD (04/14/2019 8:15 AM) [id number]
== END | disposition home or self-care (01) ==
LOC: RAD 07:24
PROVIDERS: ATTEND Neurological Surgery
DX: M53.86 Other specified dorsopathies, lumbar region (principal); M46.86 Other specified inflammatory spondylopathies, lumbar region; Z98.1 Arthrodesis status
CPT/HCPCS: 72100